=== PATIENT | female | born 1930 | race Caucasian/White ===

== ENCOUNTER 2016-04-28 18:30 | Emergency (ER) | payer MEDICARE, BC ==
[2016-04-28 19:09] VITALS: BP 170/110
--- NOTE | 2016-04-28 19:38 | UC ---
Cardiac HPI - HPI Summary HPI Summary: WOKE UP THIS MORNING "NOT FEELING WELL". LIGHTHEADED ALL DAY. CHEST HEAVINESS. DENIES NAUSEA, SOB, SWEATS, PALPITATIONS. NOT WORSE WITH EXERTION. BP AT HOME WAS 210/92. TAKES BP MEDS AT NIGHT SO HAS NOT YET TAKEN TODAY. HAS H/O AFIB, HTN , HIGH CHOLESTEROL, HYPOTHYROID. - History of Current Complaint Chief Complaint: UCGeneralIllness Stated Complaint: BLOOD PRESSURE ISSUE FEELS OUT OF IT Time Seen by Provider: 04/28/16 18:48 Hx Obtained From: Patient, Family/Senior Java Data Architect - SON Onset/Duration: Sudden Onset, Lasting Hours, Still Present Timing: Constant Initial Severity: Moderate Current Severity: Moderate Pain Intensity: 0 - NO PAIN, JUST HEAVY Chest Pain Location: Mid Sternal Character: Heaviness Aggravating: Nothing Alleviating: Nothing Associated Signs & Symptoms: Positive: Dizziness. Negative: Chest Pain, Vision Changes, Anxiety, Numbness, Tingling, Weakness, SOB, Syncope, Fever, Diaphoresis , Nausea/Vomiting, Palpitations, Cough, Hemoptysis, Back Pain, Abdominal Pain - Allergy/Home Medications Allergies/Adverse Reactions: Allergies Allergy/AdvReac Type Severity Reaction Status Date / Time Bevacizumab [From Avastin] Allergy Eyes Verified 04/28/16 18:55 Itchy/Swollen/Red/Watery Codeine Allergy Itching Verified 04/28/16 18:55 Iodine Allergy Swelling Verified 04/28/16 18:55 Of Face,Lips,& Throat Oxycodone Allergy Vomiting Verified 04/28/16 18:55 Home Medications: Home Medications Acetaminophen TAB* [Tylenol TAB*] 500 mg PRN 04/28/16 [History] Apixaban* [Eliquis*] 2.5 mg BID 04/28/16 [History Confirmed 04/28/16] Levothyroxine TAB* [Synthroid 150 MCG TAB*] 150 mcg 04/28/16 [History] PMH/Surg Hx/FS Hx/Imm Hx Endocrine History Of: Reports: Thyroid Disease Denies: Diabetes Cardiovascular History Of: Reports: Cardiac Disorders - Afib, Hypertension, Atrial Fibrillation Denies: Pacemaker/ICD Respiratory History Of: Denies: Asthma GI/ History Of: 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 RT EYE LASER SURGERY,. INJECTIONS AND LASER SURGERY LT EYE,. 1941 TONSILECTOMY,. 1945 LT OVARY CYST REMOVED,. 1945 APPENDECTOMY,. 1946 RT OVARY CYST HALF REMOVED,. GALLBLADDER AND STONES REMOVED,. CERVICAL RIB REMOVED,. HYSTERECTOMY,. COLON RESECTION FOR DIVERTICULITIS,. BOWEL OBSTRUCTION,. BLADDER SLING,. FX RT ARM X 2,. LT CATARACTS REMOVED,. LAMINECTOMY,. HERNIA, . ABCESS DRAINED,. RT KNEE REPLACEMENT,. LT CARPAL TUNNEL-. BOWEL/ INTESTINES REMOVED AND REPLACED WITH BOVINE - Family History Known Family History: Positive: Cardiac Disease, Hypertension - Social History Alcohol Use: Rare Substance Use Type: None Smoking Status (MU): Never Smoked Tobacco - Immunization History Most Recent Influenza Vaccination: 2016 Most Recent Tetanus Shot: UTD Most Recent Pneumonia Vaccination: UTD Review of Systems Constitutional: Other - LIGHTHEADED Respiratory: Negative Cardiovascular: Other - CHEST HEAVY Gastrointestinal: Negative Genitourinary: Negative All Other Systems Reviewed And Are Negative: Yes Physical Exam Triage Information Reviewed: Yes Appearance: Well-Appearing, No Pain Distress, Well-Nourished Vital Signs: Initial Vital Signs Temp 98.2 F 04/28/16 19:01 Pulse 87 04/28/16 19:01 Resp 18 04/28/16 19:01 BP 170/110 04/28/16 19:01 Pulse Ox 99 04/28/16 19:01 Vital Signs Reviewed: Yes Eyes: Positive: Conjunctiva Clear ENT: Positive: Hearing grossly normal Neck: Positive: Supple, Nontender, No Lymphadenopathy Respiratory: Positive: No respiratory distress, No accessory muscle use, Crackles - BILATERAL BASES Cardiovascular Exam: Normal Abdomen Description: Positive: Soft Musculoskeletal: Positive: Edema @ - 1+ PITTING ANKLE EDEMA LEFT>RIGHT Neurological: Positive: Alert Psychological: Positive: Normal Response To Family, Age Appropriate Behavior Skin: Negative: rashes Diagnostics - EKG Cardiac Rate: NL - 86BPM Cardiac Rhythm: Sinus: Normal Ectopy: None ST Segment: Normal - Differential Diagnoses - Chest Pain Differential Diagnosis/HQI/PQRI: ACS, CHF, Lower Respiratory Infection, Pulmonary Edema - Differential Diagnoses - Hypertension Differential Diagnosis/HQI PQRI: Hypertensive Crisis - Clinical Impression Provider Diagnoses: CHEST HEAVY, LIGHTHEADED, ELEVATED BP, ABNORMAL LUNG SOUNDS - Physician Notifications Discussed Patient Care With: WORSHIP MCKEITHAN, PA Time Discussed With Above Provider: 19:35 - TO [facility] BY PRIVATE CAR Discharge - Discharge Plan Condition: Stable Disposition: AGAINST MEDICAL ADVICE Referrals: Elsi Noel MD [Primary Care Provider] -
== END 2016-04-28 19:40 | disposition left against medical advice (07) ==
LOC: UCEAST 18:30
DX: R07.89 Other chest pain (principal); R42 Dizziness and giddiness; R09.89 Other specified symptoms and signs involving the circulatory and respiratory systems; I10 Essential (primary) hypertension; I48.91 Unspecified atrial fibrillation; Z79.01 Long term (current) use of anticoagulants; E07.9 Disorder of thyroid, unspecified; Z90.49 Acquired absence of other specified parts of digestive tract; Z98.42 Cataract extraction status, left eye; Z96.651 Presence of right artificial knee joint
CPT/HCPCS: 93005; 99212; G0463

== ENCOUNTER 2016-04-28 20:04 | Emergency (ER) | payer MEDICARE, BC ==
[2016-04-28] MEDS ORDERED: Aspirin Low Dose CHEW TAB* 81 MG PO ONE (20:42)
[2016-04-28 21:08] LABS: Hematocrit 36 % (35-47); Hemoglobin 11.8 g/dl (12.0-16.0); Mean Corpuscular HGB Conc 33 g/dl (31-36); Mean Corpuscular Hemoglobin 28 pg (27-31); Mean Corpuscular Volume 85 fL (80-97); Mean Platelet Volume 9 um3 (7.4-10.4); Red Blood Count 4.21 10^6/ul (4.0-5.4); Red Cell Distribution Width 14 % (10.5-15); White Blood Count 7.2 10^3/ul (3.5-10.8)
[2016-04-28 21:25] LABS: Albumin 4.1 g/dL (3.2-5.2); BUN/Creatinine Ratio 19.8 (8-20); Calcium 9.7 mg/dL (8.6-10.3); EGFR African American 51.9 (>60); EGFR Non-African American 40.4 (>60); Globulin 2.8 g/dL (2-4); Magnesium 1.8 mg/dL (1.9-2.7); Potassium 4.2 mmol/L (3.5-5.0); Total Bilirubin 0.3 mg/dL (0.2-1.0); Total Protein 6.9 g/dL (6.4-8.9)
--- NOTE | 2016-04-28 21:31 | ED ---
Alvin Lora Michael, scribed for Sudheer Abad MD on 04/28/16 at 2059 . HPI Chest Pain - HPI Summary HPI Summary: 85 y/o female was referred to the ED by [facility] because she is presenting with constant chest pain that started this morning. The pt describes the chest pain as heaviness. She also c/o of lightheadedness and HTN, which she took at 1600. The pt denies dizziness. The pt's EKG at [facility] today was normal per [facility] report. The PMHx is significant for Afib and HTN. - History of Current Complaint Chief Complaint: EDChestPainROMI Time Seen by Provider: 04/28/16 20:36 Hx Obtained From: Patient, Medical Records Onset/Duration: Started Hours Ago, Still Present Timing: Constant Initial Severity: Mild Current Severity: Mild Pain Intensity: 0 Pain Scale Used: 0-10 Numeric Chest Pain Location: Diffuse Chest Pain Radiates: No Character: Heaviness Associated Signs and Symptoms: Positive: Chest Pain, Lightheadedness, Other: - HTN. Negative: Dizziness - Allergy/Home Medications Allergies/Adverse Reactions: Allergies Allergy/AdvReac Type Severity Reaction Status Date / Time Bevacizumab [From Avastin] Allergy Eyes Verified 04/28/16 18:55 Itchy/Swollen/Red/Watery Codeine Allergy Itching Verified 04/28/16 18:55 Iodine Allergy Swelling Verified 04/28/16 18:55 Of Face,Lips,& Throat Oxycodone Allergy Vomiting Verified 04/28/16 18:55 PMH/Surg Hx/FS Hx/Imm Hx Endocrine/Hematology History: Reports: Hx Thyroid Disease Denies: Hx Diabetes Cardiovascular History: Reports: Hx Atrial Fibrillation, Hx Hypertension Denies: Hx Pacemaker/ICD Respiratory History: Denies: Hx Asthma History: Reports: 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 RT EYE LASER SURGERY,. INJECTIONS AND LASER SURGERY LT EYE,. 1941 TONSILECTOMY,. 1945 LT OVARY CYST REMOVED,. 1945 APPENDECTOMY,. 1946 RT OVARY CYST HALF REMOVED,. GALLBLADDER AND STONES REMOVED,. CERVICAL RIB REMOVED,. HYSTERECTOMY,. COLON RESECTION FOR DIVERTICULITIS,. BOWEL OBSTRUCTION,. BLADDER SLING,. FX RT ARM X 2,. LT CATARACTS REMOVED,. LAMINECTOMY,. HERNIA, . ABCESS DRAINED,. RT KNEE REPLACEMENT,. LT CARPAL TUNNEL-. BOWEL/ INTESTINES REMOVED AND REPLACED WITH BOVINE Infectious Disease History: No Infectious Disease History: Denies: Traveled Outside the [place] in Last 30 Days - Family History Known Family History: Positive: Cardiac Disease, Hypertension - Social History Occupation: Retired Lives: Alone Alcohol Use: Rare Substance Use Type: Reports: None Smoking Status (MU): Never Smoked Tobacco Review of Systems Negative: Fever Positive: Chest Pain Neurological: Other - lightheadedness All Other Systems Reviewed And Are Negative: Yes Physical Exam Triage Information Reviewed: Yes Vital Signs On Initial Exam: Initial Vitals Temp Pulse Resp BP Pulse Ox 97.9 F 84 18 165/92 98 04/28/16 20:15 04/28/16 20:15 04/28/16 20:15 04/28/16 20:15 04/28/16 20:15 Vital Signs Reviewed: Yes Appearance: Positive: Well-Appearing, No Pain Distress Skin: Positive: Warm Head/Face: Positive: Normal Head/Face Inspection Eyes: Positive: JESSICA ENT: Positive: Hearing grossly normal Neck: Positive: Supple Respiratory/Lung Sounds: Positive: Clear to Auscultation, Breath Sounds Present Cardiovascular: Positive: RRR Abdomen Description: Positive: Nontender, Soft Bowel Sounds: Positive: Present Musculoskeletal: Positive: Strength/ROM Intact Neurological: Positive: Sensory/Motor Intact, Normal Gait Diagnostics - Vital Signs Vital Signs Temp Pulse Resp BP Pulse Ox 04/28/16 20:15 97.9 F 84 18 165/92 98 - Laboratory Lab Results: Lab Results 04/28/16 04/28/16 04/28/16 Range/Units 20:55 20:55 20:55 WBC 7.2 (3.5-10.8) 10^3/ul RBC 4.21 (4.0-5.4) 10^6/ul Hgb 11.8 L (12.0-16.0) g/dl Hct 36 (35-47) % MCV 85 (80-97) fL MCH 28 (27-31) pg MCHC 33 (31-36) g/dl RDW 14 (10.5-15) % Plt Count 213 (150-450) 10^3/ul MPV 9 (7.4-10.4) um3 Neut % (Auto) 59.0 (38-83) % Lymph % (Auto) 27.9 (25-47) % Mchenry % (Auto) 10.5 H (1-9) % Eos % (Auto) 1.9 (0-6) % Baso % (Auto) 0.7 (0-2) % Absolute Neuts (auto) 4.3 (1.5-7.7) 10^3/ul Absolute Lymphs (auto) 2.0 (1.0-4.8) 10^3/ul Absolute Monos (auto) 0.8 (0-0.8) 10^3/ul Absolute Eos (auto) 0.1 (0-0.6) 10^3/ul Absolute Basos (auto) 0.1 (0-0.2) 10^3/ul Absolute Nucleated RBC 0 10^3/ul Nucleated RBC % 0.1 Sodium 134 (133-145) mmol/L Potassium 4.2 (3.5-5.0) mmol/L Chloride 98 L (101-111) mmol/L Carbon Dioxide 29 (22-32) mmol/L Anion Gap 7 (2-11) mmol/L BUN 25 H (6-24) mg/dL Creatinine 1.26 H (0.51-0.95) mg/dL Est GFR ( Amer) 51.9 (>60) Est GFR (Non-Af Amer) 40.4 (>60) BUN/Creatinine Ratio 19.8 (8-20) Glucose 119 H (70-100) mg/dL Lactic Acid 1.4 (0.5-2.0) mmol/L Calcium 9.7 (8.6-10.3) mg/dL Magnesium 1.8 L (1.9-2.7) mg/dL Total Bilirubin 0.30 (0.2-1.0) mg/dL AST 12 L (13-39) U/L ALT 13 (7-52) U/L Alkaline Phosphatase 50 (34-104) U/L Troponin I 0.00 (<0.04) ng/mL Total Protein 6.9 (6.4-8.9) g/dL Albumin 4.1 (3.2-5.2) g/dL Globulin 2.8 (2-4) g/dL Albumin/Globulin Ratio 1.5 (1-3) Result Diagrams: 04/28/16 20:55 04/28/16 20:55 Lab Statement: Any lab studies that have been ordered have been reviewed, and results considered in the medical decision making process. - Radiology CXR Xray Interpretation: Positive (See Comments) - There may BE early right basilar pneumonia present. Radiology Interpretation Completed By: Radiologist - EKG EK EKG Rhythm: Sinus Rhythm - [address] Segment: Normal Ectopy: None Re-Evaluation - Re-Evaluation First Eval Change: Improved Chest Pain Course/Dx - Diagnoses Provider Diagnoses: Chest pain Discharge - Discharge Plan Condition: Stable Disposition: HOME Patient Education Materials: Chest Pain (ED) Referrals: Elsi Noel MD [Primary Care Provider] - Additional Instructions: You should follow up with Dr. Noel within the next 2-3 days. Please return to the ED if your symptoms worsen. The documentation as recorded by the Alvin lehman Michael accurately reflects the service I personally performed and the decisions made by , Sudheer Abad MD.
[2016-04-28 22:06] VITALS: BP 172/101
--- NOTE | 2016-04-28 22:14 | RAD ---
Indication: Chest pain. 2 views of the chest are reviewed and compared to previous exam dated September 29, 2015. Airspace disease in the right base is noted. This may represent early pneumonia. The heart is of normal size and configuration. No pleural fluid is identified. IMPRESSION: There may BE early right basilar pneumonia present.
== END 2016-04-28 22:04 | disposition home or self-care (01) ==
LOC: ED 20:04
DX: R07.9 Chest pain, unspecified (principal); R42 Dizziness and giddiness
CPT/HCPCS: 36415; 71020; 80053; 83605; 83735; 84484; 85025; 93005; 99282

== ENCOUNTER 2016-11-09 09:47 | Day surgery (SDC) | payer MEDICARE, BC ==
[~2016-11-09 09:47] MED LIST: Buffered Lidocaine 0.9% SYRIN* 5 ML/SYR SYRINGE INTRADERM ONE; Povidone Iodine 5% OPTH* 30 ML BTL ONE
[2016-11-09] MEDS ORDERED: Bacitracin OPHTH.OINT* 3.5 GM ONE (10:23)
[2016-11-09] MEDS ORDERED: Lidocaine 1% MPF wEPI 200,000* 30 ML SDV ONE (10:24)
[2016-11-09] MEDS ORDERED: BSS OPTH.SOL* BTL ONE (10:24)
[2016-11-09] MEDS ORDERED: fentaNYL* 50 MCG/ML 2 ML VIAL (100 MCG VIAL) ONE ×2 (10:42→12:33)
[2016-11-09] MEDS ORDERED: Midazolam* 1 MG/ML 5 ML VIAL (5 MG) ONE (10:47)
[2016-11-09] MEDS ORDERED: fentaNYL* 50 MCG/ML 2 ML VIAL (100 MCG VIAL) IV PRN (11:13)
[2016-11-09] MEDS ORDERED: Acetaminophen TAB* 325 MG PO PRN (11:13)
[2016-11-09] MEDS ORDERED: DiMENhydriNATE IV* 50 MG/ML VIAL IV PUSH PRN (11:13)
[2016-11-09] MEDS ORDERED: Acetaminophen TAB* 325 MG ONE (13:36)
[2016-11-09 13:48] VITALS: BP 174/75
--- NOTE | 2016-11-10 01:04 | OP ---
DATE OF OPERATION: 11/09/16 - [facility] DATE OF : 30 SURGEON: Cody Mensah MD. 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 OPERATIVE PROCEDURE: Bilateral upper lid blepharoplasty and bilateral upper lid ptosis repair via levator aponeurosis resection. DESCRIPTION OF PROCEDURE: The patient was seen preoperatively in the holding area and matta were made on the upper lid designating the incisional pattern for the blepharoplasty. Care was taken to leave at least 20 mm of healthy tissue behind. The patient was subsequently brought to the operating room where she was given a small amount of intravenous sedation. Approximately 2 cc of 1% lidocaine with epinephrine was distributed evenly amongst the two upper eyelids. A monopolar cautery was used to cut the predesignated ellipse of tissue from the right upper eyelid. Skin and orbicularis were elevated with a Pat scissor. Cauterization was performed to achieve hemostasis as needed. The orbital septum was tented up and violated. Horizontal incisions were made in the septum to allow postseptal fat to protrude forward. Dental pressure on the globe facilitated this maneuver. The fat was sequentially clamped, cut, and cauterized. Further dissection inferiorly revealed the levator aponeurosis. This was somewhat verified and dehisced from the tarsal plate. The levator aponeurosis was surgically disinserted from the tarsal plate. The distal few mm were trimmed. A 5-0 Vicryl suture was used to secure the new distal end of the aponeurosis to the anterior aspect of the tarsus near the superior border. A slip knot was performed and the patient was sat upright. She was asked to open her eyes. The lid height appeared acceptable. The patient was laid back down and 3 other sutures were placed in a similar fashion to create an appropriate contour. Bleeding was controlled as necessary with further cauterization. At this point, the attention was directed to contralateral eye where the exact same procedure was performed. Once both eyes were at the same point in the procedure they were evaluated. The eyelid heights appeared equal and the contour appeared good. There was no active bleeding. Thus, the skin was closed with a running 6-0 gut suture. Attention was first directed to the right eye and then the left eye. At the end of the case, there was no active bleeding and the eyelid margin, contour, and height were good. The patient was sent to recovery room with topical bacitracin ointment on the surface of the eyelids. Postoperative instructions including ice and elevation of the head of bed were given. The patient was given a followup appointment. [id number]/[facility] #: [id number] JUAN
== END 2016-11-09 14:03 | disposition home or self-care (01) ==
LOC: OREAST 09:47
PROVIDERS: ATTEND Ophthalmology
DX: H02.31 Blepharochalasis right upper eyelid (principal); H02.34 Blepharochalasis left upper eyelid; H02.403 Unspecified ptosis of bilateral eyelids; H02.831 Dermatochalasis of right upper eyelid; H02.834 Dermatochalasis of left upper eyelid; Z79.01 Long term (current) use of anticoagulants; H40.9 Unspecified glaucoma; F32.9 Major depressive disorder, single episode, unspecified; I48.91 Unspecified atrial fibrillation; I10 Essential (primary) hypertension; E78.5 Hyperlipidemia, unspecified; E03.9 Hypothyroidism, unspecified; E66.9 Obesity, unspecified; K21.9 Gastro-esophageal reflux disease without esophagitis; Z86.79 Personal history of other diseases of the circulatory system; Z68.32 Body mass index [BMI] 32.0-32.9, adult; Z88.5 Allergy status to narcotic agent; Z91.041 Radiographic dye allergy status; Z88.8 Allergy status to other drugs, medicaments and biological substances
CPT/HCPCS: A9270-GY; J2001; J2250; J3010

== ENCOUNTER 2017-06-25 17:33 | Emergency (ER) | payer MEDICARE, BC ==
--- NOTE | 2017-06-25 18:17 | ED ---
GI/ HPI - HPI Summary HPI Summary: 86 M presents with right flank pain and lower abdominal pain for the past couple days. States 6 days ago she was diagnosed with UTI as her primary requested a the urine sample at that time even though her only symptoms. She placed on Cipro which has been on for the past 6 days. She denies any fevers. she denies any nausea vomiting. She denies any hematuria. She denies any history of kidney stones. She has had gallbladder, appendix and uterus removed. She is history of small bowel. She admits constipation but denies any diarrhea. States the pain starts on the right side of her back and radiates to side of abd on right. Never had this pain before. States feels like a pressure. The lower abdomen she feels the pressure. She has not tried anything for her symptoms. Normal appetite. - History of Current Complaint Chief Complaint: EDFlankPain Time Seen by Provider: 06/25/17 18:02 Stated Complaint: UTI Pain Intensity: 7 - Allergy/Home Medications Allergies/Adverse Reactions: Allergies Allergy/AdvReac Type Severity Reaction Status Date / Time bevacizumab [From Avastin] Allergy Severe Eyes Verified 06/25/17 17:49 Itchy/Swollen/Red/Watery Iodinated Contrast- Oral and Allergy Severe Swelling Verified 06/25/17 17:49 IV Dye Of Face,Lips,& Throat oxycodone Allergy Severe Hallucinati Verified 06/25/17 17:49 ons codeine Allergy Intermediate Itching Verified 06/25/17 17:49 PMH/Surg Hx/FS Hx/Imm Hx Endocrine/Hematology History: Reports: Hx Thyroid Disease, Hx Anemia - has had a couple of times, not now Denies: Hx Diabetes Cardiovascular History: Reports: Hx Angina - in past none recent, Hx Atrial Fibrillation, Hx Hypertension Denies: Hx Pacemaker/ICD Respiratory History: Denies: Hx Asthma GI History: Reports: Hx Gastroesophageal Reflux Disease History: Reports: Hx Kidney Infection - just resolved having an UTI, Hx Kidney Stones - x1 years ago- none now, 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 Musculoskeletal History: Reports: Hx Arthritis, Hx Tendonitis Sensory History: Reports: Hx Glaucoma - and macular degeneration Denies: Hx Contacts or Glasses - has but doesn't wear r/t legallt blind and doesn't help, Hx Hearing Aid Opthamlomology History: Reports: Hx Glaucoma - and macular degeneration Denies: Hx Contacts or Glasses - has but doesn't wear r/t legallt blind and doesn't help Neurological History: Reports: Hx Headaches, Hx Migraine - none in years Comment Only: Hx Nerve Disease - neuropathy Psychiatric History: Reports: Hx Depression Denies: Hx Panic Disorder - Cancer History Hx Chemotherapy: No - Surgical History Surgery Procedure, Year, and Place: TREATMENTS FOR MACULAR DEGENERATION BILATERAL LASER EYE AND INJECTIONS LT EYE;. 1941 TONSILECTOMY;. 1945 LT OVARY CYST REMOVED;. 1945 APPENDECTOMY;. 1946 RT OVARY CYST HALF REMOVED;. GALLBLADDER AND STONES REMOVED;. CERVICAL RIB REMOVED;. HYSTERECTOMY;. COLON RESECTION FOR DIVERTICULITIS;. COLON SURGERY FOR BOWEL OBSTRUCTION;. BLADDER SLING;. FX RT ARM X 2;. LT EYE CATARACTS REMOVED;. LUMBAR LAMINECTOMY;. HERNIA REPAIR;. ABCESS DRAINED;. RT KNEE REPLACEMENT;. LT CARPAL TUNNEL;. COLON SURGERY WITH BOVINE REPLACEMENT; Hx Anesthesia Reactions: No Infectious Disease History: No Infectious Disease History: Denies: Traveled Outside the [place] in Last 30 Days - Family History Known Family History: Positive: Cardiac Disease, Hypertension - Social History Alcohol Use: Rare Substance Use Type: Reports: None Smoking Status (MU): Never Smoked Tobacco Review of Systems Negative: Fever Negative: Chest Pain Negative: Shortness Of Breath Positive: Nausea. Negative: Vomiting, Diarrhea Positive: frequency, flank pain, other - lower abdominal pain All Other Systems Reviewed And Are Negative: Yes Physical Exam Triage Information Reviewed: Yes Vital Signs On Initial Exam: Initial Vitals Temp Pulse Resp BP Pulse Ox 97.1 F 88 16 144/102 97 06/25/17 17:50 06/25/17 17:50 06/25/17 17:50 06/25/17 17:50 06/25/17 17:50 Vital Signs Reviewed: Yes Appearance: Positive: Well-Appearing Skin: Positive: Warm, Dry Head/Face: Positive: Normal Head/Face Inspection Eyes: Positive: Normal, Conjunctiva Clear ENT: Positive: Pharynx normal Respiratory/Lung Sounds: Positive: Clear to Auscultation, Breath Sounds Present Cardiovascular: Positive: Normal, RRR Abdomen Description: Positive: Nontender, Soft. Negative: CVA Tenderness (R), CVA Tenderness (L) Bowel Sounds: Positive: Present Musculoskeletal: Positive: Normal Neurological: Positive: Normal Psychiatric: Positive: Normal Diagnostics - Vital Signs Vital Signs Temp Pulse Resp BP Pulse Ox 06/25/17 17:50 97.1 F 88 16 144/102 97 - Laboratory Result Diagrams: 06/25/17 18:36 06/25/17 18:36 Lab Statement: Any lab studies that have been ordered have been reviewed, and results considered in the medical decision making process. - CT abd CT Interpretation: No Acute Changes CT Interpretation Completed By: Radiologist JONES Course/Dx - Course Course Of Treatment: 86 M presents with right flank pain and lower abdominal pain for the past couple days. States 6 days ago she was diagnosed with UTI as her primary requested a the urine sample at that time even though her only symptoms. She placed on Cipro which has been on for the past 6 days. She denies any fevers. she denies any nausea vomiting. She denies any hematuria. She denies any history of kidney stones. She has had gallbladder, appendix and uterus removed. She is history of small bowel. She admits constipation but denies any diarrhea. States the pain starts on the right side of her back and radiates to side of abd on right. Never had this pain before. States feels like a pressure. The lower abdomen she feels the pressure. She has not tried anything for her symptoms. Normal appetite. On exam nontender abdomen and back. CT abdomen normal. White blood cell count normal. Urine likely contaminant. Will follow-up with primary. Patient understands agrees with plan. - Diagnoses Differential Diagnoses - Female: Diverticulitis, Pyelonephritis, Urinary Tract Infection Provider Diagnoses: Abdominal pain, Flank pain Discharge - Sign-Out/Discharge Documenting (check all that apply): Discharge/Admit/Transfer - Discharge Plan Condition: Good Disposition: HOME Patient Education Materials: Flank Pain (ED) Referrals: Elsi Noel MD [Primary Care Provider] - Additional Instructions: Take Tylenol every 6 hours as needed for pain Apply ice/heat Follow up with primary care physician within 5 days Return to ED if develop any new or worsening symptoms - Billing Disposition and Condition Condition: GOOD Disposition: HOME
[2017-06-25 18:46] LABS: ABS Basophils 0.1 10^3/ul (0-0.2); ABS Eosinophils 0.1 10^3/ul (0-0.6); ABS Lymphocytes 1.4 10^3/ul (1.0-4.8); ABS Monocytes 0.6 10^3/ul (0-0.8); ABS Neutrophils 4.8 10^3/ul (1.5-7.7); ABS Nucleated RBC 0 10^3/ul; Eosinophil % 1.8 % (0-6); Hematocrit 37 % (35-47); Hemoglobin 12.2 g/dl (12.0-16.0); Lymphocyte % 20.4 % (25-47); Mean Corpuscular HGB Conc 33 g/dl (31-36); Mean Corpuscular Hemoglobin 28 pg (27-31); Mean Corpuscular Volume 85 fL (80-97); Mean Platelet Volume 8.9 um3 (7.4-10.4); Nucleated Red Blood Cells % 0; Platelet Count 261 10^3/ul (150-450); Red Blood Count 4.34 10^6/ul (4.0-5.4); Red Cell Distribution Width 14 % (10.5-15)
[2017-06-25 18:57] LABS: INR 1.09 (0.77-1.02)
[2017-06-25 19:04] LABS: Urine Appearance Cloudy; Urine Blood Negative (Negative); Urine Color Yellow; Urine Ketones Trace (Negative); Urine Protein 1+(30 mg/dL) (Negative); Urine Urobilinogen Negative (Negative)
--- NOTE | 2017-06-25 19:10 | RAD ---
CLINICAL HISTORY: Lower abdominal pain, right flank pain COMPARISON: None TECHNIQUE: Multiple contiguous axial CT scans were obtained of the abdomen and pelvis, without intravenous contrast enhancement. Coronal and sagittal multiplanar reformations are submitted for review. Oral contrast was not administered. FINDINGS: The study is limited by the lack of intravenous contrast. This limits evaluation of the solid organs and vasculature. LUNG BASES: The lung bases are clear. LIVER: The liver is normal in shape, size, contour, and attenuation. BILE DUCTS: There is no intrahepatic or extrahepatic biliary dilatation. GALLBLADDER: The gallbladder is not visualized and may be surgically absent. PANCREAS: The pancreas is normal, without mass or ductal dilatation. SPLEEN: Normal in size and appearance. UPPER GI TRACT: Evaluation of the gastrointestinal tract is limited by incomplete gastric distention. The upper GI tract is unremarkable. SMALL BOWEL AND MESENTERY: The small bowel is normal in contour, course, and caliber. There is no obstruction or dilatation. COLON: There are multiple diverticula of the descending and sigmoid colon. There is no pericolonic inflammatory change. The appendix is not visualized. There is no inflammatory change within the right lower quadrant. There is postsurgical change to the transverse colon. ADRENALS: Normal bilaterally. KIDNEYS: The kidneys are normal in shape, size, contour, and axis. There is no hydronephrosis or nephrolithiasis. BLADDER: The bladder is incompletely distended but is grossly normal. PELVIC ORGANS: The pelvic organs are not visualized. AORTA: There is calcific atherosclerotic disease of the abdominal aorta and its branches, without aneurysmal dilatation IVC: Unremarkable LYMPH NODES: There is no lymphadenopathy by size criteria. ABDOMINAL WALL: There is a right parasagittal ventral hernia and umbilical hernia containing sidewall of small bowel. There is no obstruction. BONES AND SOFT TISSUES: Degenerative changes are noted. OTHER: None IMPRESSION: NO HYDRONEPHROSIS OR NEPHROLITHIASIS. DIVERTICULOSIS. ATHEROSCLEROSIS
[2017-06-25 19:15] LABS: EGFR Non-African American 36.9 (>60)
[2017-06-25] MEDS ORDERED: NS 0.9% 1000 ML* 1,000 ML IV ONE (19:22)
[2017-06-25 20:22] VITALS: BP 168/106
--- NOTE | 2017-06-28 09:54 | PN ---
Progress Note - Progress Note Date of Service: 06/25/17 Note: Organism grew enterococcus Faecium patient not placed on antibiotics prior to discharge We will await sensitivities before prescribing abx Should require antibiotics as she was symptomatic
--- NOTE | 2017-06-29 07:25 | PN ---
Progress Note - Progress Note Date of Service: 06/29/17 Note: patient urine grew Enterococcus faecium 50-75,000. called patient and left message to call back to check symptoms. patient is resistant to everything that is oral. if having symptoms will treat if not does not need treatment as not a significant culture. if having symptoms or fever will need to return to ED for IV antibiotics. <Keri Camacho - Last Filed: 06/29/17 17:30> Attestation Statement User Type: Provider - I was available for consult. This patient was seen by the MISAEL. The patient was not presented to, seen by, or examined by me. -Lisandro <Cinthya Ellis - Last Filed: 07/01/17 08:32>
== END 2017-06-25 20:26 | disposition home or self-care (01) ==
LOC: ED 17:33
DX: R10.30 Lower abdominal pain, unspecified (principal); K43.9 Ventral hernia without obstruction or gangrene; K42.9 Umbilical hernia without obstruction or gangrene; K57.30 Diverticulosis of large intestine without perforation or abscess without bleeding; I70.0 Atherosclerosis of aorta; Z88.5 Allergy status to narcotic agent; Z91.041 Radiographic dye allergy status; Z88.8 Allergy status to other drugs, medicaments and biological substances
CPT/HCPCS: 36415; 74176; 80053; 81003; 81015; 83605; 85025; 85610; 85730; 87040; 87077; 87086; 87186; 99282